=== PATIENT | female | born 1975 | race Two or more races ===

== ENCOUNTER 2017-08-18 10:54 | Outpatient (CLI) | payer OTHER | END 2017-08-18 11:10 | disposition home or self-care (01) | LOC: MAMO-SONO 10:54 | DX: Z12.31 Encounter for screening mammogram for malignant neoplasm of breast (principal); N64.4 Mastodynia; N60.11 Diffuse cystic mastopathy of right breast; N64.89 Other specified disorders of breast ==

== ENCOUNTER → 2020-10-01 | Emergency (ER) | payer OTHER ==
[~2020-10-01] VITALS: Ht 165.1 cm; Wt 63.5 kg
[~2020-10-01] MED LIST: BACTRIM DS TAB1 EACH PO; DRAMAMINE LESS25 MG PO
== END | disposition home or self-care (01) ==
LOC: ER 16:45
DX: J06.9 Acute upper respiratory infection, unspecified (principal); R42 Dizziness and giddiness

== ENCOUNTER 2022-05-04 08:42 | Day surgery (SDC) | payer OTHER ==
[~2022-05-04] VITALS: Ht 165.1 cm; Wt 63.5 kg
== END 2022-05-04 17:10 | disposition home or self-care (01) ==
LOC: CIR.AMB 08:42
PROVIDERS: ATTEND Obstetrics & Gynecology Maternal & Fetal Medicine
DX: N84.0 Polyp of corpus uteri (principal); Z20.822 Contact with and (suspected) exposure to COVID-19

== ENCOUNTER 2022-09-20 10:35 | Outpatient (CLI) | payer OTHER | END 2022-09-20 10:49 | disposition home or self-care (01) | LOC: MAMO-SONO 10:35 | PROVIDERS: ATTEND Obstetrics & Gynecology Maternal & Fetal Medicine | DX: Z12.31 Encounter for screening mammogram for malignant neoplasm of breast (principal); N63.0 Unspecified lump in unspecified breast; N64.4 Mastodynia; N60.11 Diffuse cystic mastopathy of right breast ==

== ENCOUNTER 2023-04-21 14:40 | Outpatient (CLI) | payer OTHER | END 2023-04-21 14:53 | disposition home or self-care (01) | LOC: RAD 14:40 | PROVIDERS: ATTEND Family Medicine | DX: D17.21 Benign lipomatous neoplasm of skin and subcutaneous tissue of right arm (principal) ==

== ENCOUNTER 2024-08-13 11:00 | Outpatient (CLI) | payer OTHER | END 2024-08-13 11:02 | disposition home or self-care (01) | LOC: MAMO-SONO 11:00 | PROVIDERS: ATTEND Obstetrics & Gynecology Maternal & Fetal Medicine | DX: N63 Unspecified lump in breast (principal); Z12.31 Encounter for screening mammogram for malignant neoplasm of breast; N64.4 Mastodynia; N60.11 Diffuse cystic mastopathy of right breast ==